=== PATIENT | female | born 1965 | race Caucasian/White ===

== ENCOUNTER → 2016-10-29 | Outpatient (CLI) | payer OTHER ==
[2016-10-29 13:11] LABS: FREE T4 0.82 NG/DL (0.76-1.46)
[2016-10-29 13:13] LABS: MEAN CORPUSCULAR HEMOGLOBIN 28.2 pg (27.0-33.0); MEAN CORPUSCULAR VOLUME 88.1 fl (80.0-96.0); RED CELL DISTRIBUTION WIDTH 14.6 % (11.5-14.5)
[2016-11-01 10:13] LABS: WHITE BLOOD COUNT 3.5 K/mm3 (4.0-10.0)
== END ==
LOC: M WUC 08:42
PROVIDERS: ATTEND Advanced Practice Midwife
DX: N92.0 Excessive and frequent menstruation with regular cycle (principal); R53.82 Chronic fatigue, unspecified; Z13.220 Encounter for screening for lipoid disorders

== ENCOUNTER → 2017-01-17 | Outpatient (CLI) | payer OTHER ==
--- NOTE | 2017-01-18 04:59 | REP ---
Clinical: Dysmenorrhea. Comparison: 09/29/2015. Technique: Transabdominal pelvic ultrasound followed by transvaginal examination for better evaluation of the endometrium and adnexa with color Doppler evaluation of the ovaries. Findings: Bladder is unremarkable and measures 9.1 x 4.3 x 5.4 cm . Heterogeneous, anteverted, myomatous uterus measures 11.9 x 6.7 x 7.3 cm. The endometrial complex measures 11.3 mm thickness. Left anterior intramural fibroid measures 2.3 x 1.9 x 1.9 cm; left posterior intramural fibroid measures 1.9 x 1.2 x 1.4 cm; posterior midline intramural fibroid measures 2.9 x 2.9 x 2.4 cm. Bilateral ovaries are normal in appearance and vascularity without evidence for torsion. Right ovary measures 1.9 x 1.4 x 2.0 cm ; R I = 0.59 . Left ovary measures 2.2 x 1.0 x 2.1 cm ; R I = 0.58. No pelvic fluid or adnexal mass lesion . Impression: 1. Enlarged heterogeneous myomatous uterus. 2. Normal bilateral ovaries without torsion. Signed by Malcolm Chambers MD 01/18/2017 04:50 A
== END ==
LOC: M RAD 10:01
PROVIDERS: ATTEND Physician Assistant
DX: N94.6 Dysmenorrhea, unspecified (principal); N85.2 Hypertrophy of uterus; D25.9 Leiomyoma of uterus, unspecified

== ENCOUNTER 2017-03-24 06:44 | Outpatient (CLI) | payer OTHER ==
[~2017-03-24] VITALS: Ht 165.1 cm; Wt 56.2 kg
[~2017-03-24 06:44] MED LIST: MICR1TAB16 PO; TOPI50TA9 PO; VENL75CA47 PO
[2017-03-24] MEDS ORDERED: PROPOFOL 200 MG/20 ML VIAL As Ordered ONE (07:02)
[2017-03-24] MEDS ORDERED: LIDOCAINE 2% INJ 100 MG/5 ML SDV (FOR ANES.) As Ordered ONE (07:07)
[2017-03-24] MEDS ORDERED: NS 1,000 ML IV SCH (07:30)
--- NOTE | 2017-03-24 08:48 | RO ---
DATE OF PROCEDURE: 03/24/2017 PREOPERATIVE DIAGNOSIS: Screening colonoscopy. POSTOPERATIVE DIAGNOSIS: Screening colonoscopy. PROCEDURE: Colonoscopy. SURGEON: Herman Betts MD ANESTHESIA: Propofol. ESTIMATED BLOOD LOSS: None. FLUIDS: Crystalloid. DESCRIPTION OF PROCEDURE: The patient was brought to the endoscopy suite and was placed in the left lateral decubitus position. The patient was given intravenous sedation/propofol by anesthesia and the colonoscope was inserted into the anus, advanced to the ileocecal valve into the cecum. After changing the patient's position, as well as gentle abdominal pressure to guide it to the right colon, she had a very redundant. Eventually, the colonoscope was removed after visualizing the ileocecal valve and the appendiceal orifice, the cecum, right colon, transverse colon, descending colon, sigmoid colon and rectum appeared normal without any significant abnormalities. The patient did have some grade 2 internal hemorrhoids that prolapsed on removal of the scope, but these were not friable or actively bleeding. In addition, she had some very redundant sigmoid transverse colon, as well as ascending colon, but otherwise no significant abnormalities were appreciated. The recommendation is for followup colonoscopy for screening purposes in 10 years.
[2017-03-24 08:55] VITALS: BP 103/57
== END 2017-03-24 09:03 | disposition home or self-care (01) ==
LOC: M OPP 06:44
PROVIDERS: ATTEND Surgery
DX: Z12.11 Encounter for screening for malignant neoplasm of colon (principal); K64.1 Second degree hemorrhoids; Q43.8 Other specified congenital malformations of intestine; R56.9 Unspecified convulsions; F41.9 Anxiety disorder, unspecified; Z79.899 Other long term (current) drug therapy; Z80.42 Family history of malignant neoplasm of prostate

== ENCOUNTER → 2018-06-22 | Outpatient (CLI) | payer BC ==
[2018-06-22 12:47] LABS: BASO % 0.4 % (0.0-1.0); EOS # 0.2 10^3/uL (0.0-0.50); EOS % 4.4 % (0.0-3.0); HEMATOCRIT 32.5 % (36.0-47.0); HEMOGLOBIN 9.7 g/dl (12.0-15.5); IMMATURE GRANULOCYTE % 0.2 % (0-3.0); LYMPH # 1.2 10^3/uL (1.5-4.5); LYMPH % 26.9 % (24.0-44.0); MEAN CORPUSCULAR HEMOGLOBIN 24.3 pg (27.0-33.0); MEAN CORPUSCULAR HGB CONC 29.8 g/dl (32.0-36.5); MEAN CORPUSCULAR VOLUME 81.5 fl (80.0-96.0); MONO # 0.4 10^3/uL (0.0-0.8); NEUTROPHILS # 2.7 10^3/uL (1.8-7.7); NEUTROPHILS % 59.1 % (36.0-66.0); RED BLOOD COUNT 3.99 10^6/uL (4.00-5.40); RED CELL DISTRIBUTION WIDTH 15.9 % (11.5-14.5); WHITE BLOOD COUNT 4.5 10^3/uL (4.0-10.0)
[2018-06-22 13:12] LABS: POS COUNT POS FLAG
[2018-06-22 13:47] LABS: ALBUMIN 3.4 GM/DL (3.2-5.2); ALKALINE PHOSPHATASE 29 U/L (45-117); ALT/SGPT 13 U/L (12-78); ANION GAP 7 MEQ/L (8-16); AST/SGOT 10 U/L (7-37); BILIRUBIN,TOTAL 0.3 MG/DL (0.2-1.0); BLOOD UREA NITROGEN 12 MG/DL (7-18); CALCIUM LEVEL 8.7 MG/DL (8.5-10.1); CARBON DIOXIDE LEVEL 22 MEQ/L (21-32); CHLORIDE LEVEL 111 MEQ/L (98-107); CHOLESTEROL LEVEL 172 MG/DL (<200); CHOLESTEROL RISK RATIO 3.659 (<5); CREATININE FOR GFR 0.74 MG/DL (0.55-1.30); FREE T4 0.87 NG/DL (0.76-1.46); GLOMERULAR FILTRATION RATE > 60.0 (>51); GLUCOSE, FASTING 80 MG/DL (70-100); HDL CHOLESTEROL 47 MG/DL (>40); LDL CHOLESTEROL 94 MG/DL (<100); NON-HDL-C 125 MG/DL; POTASSIUM SERUM 4.8 MEQ/L (3.5-5.1); SODIUM LEVEL 140 MEQ/L (136-145); TOTAL PROTEIN 6.8 GM/DL (6.4-8.2); TRIGLYCERIDES LEVEL 154 MG/DL (<150)
[2018-06-22 15:19] LABS: RETIC HEMOGLOBIN EQUIVALENT 23.6 pg (24-36); RETICULOCYTE # 51.7 10^9/L (17-77); RETICULOCYTE % 1.3 % (0.5-1.5)
[2018-06-22 15:23] LABS: FERRITIN 2 NG/ML (8-252); IRON (FE) 28 UG/DL (50-170); PERCENT SATURATION 4.5 % (13.2-45.0); TOTAL IRON BINDING CAPACITY 616 UG/DL (250-450)
== END ==
LOC: M WUC 08:54
DX: D64.9 Anemia, unspecified (principal); Z13.0 Encounter for screening for diseases of the blood and blood-forming organs and certain disorders involving the immune mechanism; Z13.29 Encounter for screening for other suspected endocrine disorder; Z13.220 Encounter for screening for lipoid disorders
CPT/HCPCS: 83550

== ENCOUNTER → 2018-07-21 | Outpatient (REF) | payer BC | LOC: M LAB REF 17:09 | DX: N92.0 Excessive and frequent menstruation with regular cycle (principal) | CPT/HCPCS: 88305 ==

== ENCOUNTER → 2018-07-31 | Outpatient (CLI) | payer BC ==
--- NOTE | 2018-08-01 05:03 | REP ---
Clinical: Menometrorrhagia . Technique: Transabdominal pelvic ultrasound followed by transvaginal examination for better evaluation of the endometrium and adnexa with color Doppler evaluation of the ovaries. Findings: Bladder is unremarkable and measures 8.8 x 9.7 x 6.5 cm . Enlarged myomatous uterus measures 10.6 x 7.1 x 7.7 cm . The endometrial complex measures 5.7 mm thickness. Left anterior subserosal fibroid measures 3.0 x 2.3 x 2.9 cm; posterior intramural fibroid measures 2.1 x 1.9 x 1.5 cm; posterior/lower uterine segment intramural fibroid measures 1.3 x 1.3 x 1.3 cm; posterior left subserosal fibroid measures 1.6 x 1.5 x 1.3 cm; right lateral fibroid measures 1.4 x 1.6 x 1.8 cm. Right ovary not visualized. Left ovary appears normal and measures 2.0 x 1.0 x 1.5 cm. No pelvic fluid or adnexal mass lesion. Impression: 1. Enlarged myomatous uterus. 2. Normal left ovary; right ovary not visualized. Electronically Signed by Malcolm Chambers MD 08/01/2018 04:54 A
== END ==
LOC: M RAD 08:29
PROVIDERS: ATTEND Advanced Practice Midwife
DX: N85.2 Hypertrophy of uterus (principal); N92.0 Excessive and frequent menstruation with regular cycle

== ENCOUNTER → 2018-09-25 | Outpatient (CLI) | payer BC ==
[~2018-09-25] MED LIST changes: +FERR325T3 PO; +VITA500055 PO; +ZYRT10CA5 PO
[2018-09-25 13:14] LABS: BASO % 0.5 % (0.0-1.0); EOS # 0.4 10^3/uL (0.0-0.50); EOS % 8.5 % (0.0-3.0); HEMATOCRIT 43.4 % (36.0-47.0); LYMPH # 1.4 10^3/uL (1.5-4.5); LYMPH % 33.3 % (24.0-44.0); MEAN CORPUSCULAR HEMOGLOBIN 31.1 pg (27.0-33.0); MEAN CORPUSCULAR HGB CONC 32.3 g/dl (32.0-36.5); MEAN CORPUSCULAR VOLUME 96.4 fl (80.0-96.0); MONO # 0.4 10^3/uL (0.0-0.8); MONO % 8.3 % (0.0-5.0); NEUTROPHILS # 2.1 10^3/uL (1.8-7.7); NEUTROPHILS % 49.2 % (36.0-66.0); WHITE BLOOD COUNT 4.2 10^3/uL (4.0-10.0)
== END ==
LOC: M WUC 08:52
PROVIDERS: ATTEND Family Medicine
DX: D50.9 Iron deficiency anemia, unspecified (principal)

== ENCOUNTER → 2018-10-03 | Outpatient (CLI) | payer BC ==
[~2018-10-03] MED LIST changes: +PERCOCET PO
[2018-10-03 13:20] LABS: BLOOD UREA NITROGEN 13 MG/DL (7-18); CALCIUM LEVEL 8.8 MG/DL (8.5-10.1); CARBON DIOXIDE LEVEL 23 MEQ/L (21-32); CHLORIDE LEVEL 106 MEQ/L (98-107); CHOLESTEROL LEVEL 164 MG/DL (<200); CREATININE FOR GFR 0.83 MG/DL (0.55-1.30); GLOMERULAR FILTRATION RATE > 60.0 (>51); GLUCOSE, FASTING 74 MG/DL (70-100); HDL CHOLESTEROL 50 MG/DL (>40); LDL CHOLESTEROL 87 MG/DL (<100); NON-HDL-C 114 MG/DL; POTASSIUM SERUM 4.4 MEQ/L (3.5-5.1); SODIUM LEVEL 139 MEQ/L (136-145); TRIGLYCERIDES LEVEL 133 MG/DL (<150)
== END ==
LOC: M WUC 08:16
PROVIDERS: ATTEND Family Medicine
DX: Z13.220 Encounter for screening for lipoid disorders (principal)

== ENCOUNTER 2018-10-13 06:01 | Day surgery (SDC) | payer BC ==
[~2018-10-13] VITALS: Ht 165.1 cm; Wt 57.2 kg
[~2018-10-13 06:01] MED LIST changes: +LR 1,000 ML IV ONE
[2018-10-13 06:30] LABS: HEMATOCRIT 44.1 % (36.0-47.0); HEMOGLOBIN 14.4 g/dl (12.0-15.5); MEAN CORPUSCULAR HEMOGLOBIN 31.8 pg (27.0-33.0); MEAN CORPUSCULAR HGB CONC 32.7 g/dl (32.0-36.5); MEAN CORPUSCULAR VOLUME 97.4 fl (80.0-96.0); PLATELET COUNT, AUTOMATED 279 10^3/uL (150-450); RED BLOOD COUNT 4.53 10^6/uL (4.00-5.40); WHITE BLOOD COUNT 5.2 10^3/uL (4.0-10.0)
[2018-10-13] MEDS ORDERED: SCOPOLAMINE 1MG TRANSDERMAL PATCH As Ordered ONE (07:00)
[2018-10-13] MEDS ORDERED: LIDOCAINE 2% INJ 100 MG/5 ML SDV (FOR ANES.) As Ordered ONE ×3 (07:01→11:40)
[2018-10-13] MEDS ORDERED: ROCURONIUM BROMIDE 50 MG/5 ML VIAL As Ordered ONE ×2 (07:01→11:40)
[2018-10-13] MEDS ORDERED: PROPOFOL 200 MG/20 ML VIAL As Ordered ONE ×2 (07:01→08:27)
[2018-10-13] MEDS ORDERED: dexameTHASONE 4 MG/ML 1ML VIAL (J1100) As Ordered ONE ×2 (07:02→11:40)
[2018-10-13] MEDS ORDERED: ONDANSETRON 4MG/2ML VIAL (J2405) As Ordered ONE (07:02)
[2018-10-13] MEDS ORDERED: KETOROLAC 60 MG/2 ML VIAL (J1885) As Ordered ONE (07:02)
[2018-10-13] MEDS ORDERED: fentaNYL 100 MCG/2 ML INJECTION (J3010) As Ordered ONE (07:02)
[2018-10-13] MEDS ORDERED: HYDROmorphone HCL 2 MG/ML 1ML VIAL (J1170) As Ordered ONE (07:03)
[2018-10-13] MEDS ORDERED: MIDAZOLAM INJ 5 MG/ML VIAL (J2250) As Ordered ONE (07:03)
[2018-10-13] MEDS ORDERED: KETAMINE HCL 200 MG/20 ML VIAL As Ordered ONE (07:04)
[2018-10-13] MEDS ORDERED: SUGAMMADEX SODIUM 500 MG/5 ML VIAL (BRIDION) As Ordered ONE (07:08)
[2018-10-13] MEDS ORDERED: METHYLENE BLUE 0.5% (5MG/ML) 10 ML AMP (PROVAYBLUE)(Q9968 PER 1MG) As Ordered ONE (07:11)
[2018-10-13] MEDS ORDERED: BUPIVACAINE HCL 0.25% 10 ML VIAL As Ordered ONE (07:11)
[2018-10-13 07:13] LABS: URINE PREG TEST NEGATIVE (NEGATIVE)
[2018-10-13] MEDS ORDERED: SCOPOLAMINE 1MG TRANSDERMAL PATCH TOP ONE (07:15)
[2018-10-13] MEDS ORDERED: METHOCARBAMOL IV ONE (08:00)
[2018-10-13] MEDS ORDERED: NS IV ONE (08:00)
[2018-10-13] MEDS ORDERED: GLYCOPYRROLATE INJ 0.2 MG/ML 2 ML VIAL As Ordered ONE (08:23)
[2018-10-13] MEDS ORDERED: ePHEDrine SULFATE 25 MG/5 ML(5MG/ML) SYRINGE As Ordered ONE (08:23)
[2018-10-13] MEDS ORDERED: SILVER NITRATE APPLICATOR As Ordered ONE (09:28)
[2018-10-13] MEDS ORDERED: fentaNYL 100 MCG/2 ML INJECTION (J3010) IV PRN (10:15)
[2018-10-13] MEDS ORDERED: ONDANSETRON 4MG/2ML VIAL (J2405) IV PRN (10:15)
[2018-10-13] MEDS ORDERED: PERCOCET 5MG/325MG TAB PO PRN ×2 (10:15→10:30)
[2018-10-13] MEDS ORDERED: LR 1,000 ML IV SCH (10:15)
--- NOTE | 2018-10-13 10:37 | RO ---
DATE OF PROCEDURE: 10/13/2018 PREOPERATIVE DIAGNOSES: 1. Fibroid uterus. 2. Abnormal uterine bleeding. POSTOPERATIVE DIAGNOSES: 1. Fibroid uterus. 2. Abnormal uterine bleeding. PROCEDURES PERFORMED: 1. Robotic assisted laparoscopic hysterectomy. 2. Bilateral salpingectomy. 3. Cystoscopy. SURGEON: Patito Hernandez MD STEAM [employer]OVEL OPERATING ENGINEER: QASIM Miller ANESTHESIA: General endotracheal anesthesia. ESTIMATED BLOOD LOSS: 50 mL. INTRAVENOUS FLUIDS: 1500 mL of Lactated Ringer's solution. URINE OUTPUT: 100 mL. PREOPERATIVE ANTIBIOTICS: 2 grams of Ancef. OPERATIVE FINDINGS: Patient with markedly enlarged fibroid uterus. Normal appearing bilateral adnexa. Cystoscopic findings show normal bladder mucosa, bilateral jets were observed, no foreign objects were seen. DESCRIPTION OF OPERATION: After informed consent was obtained and written consent was reviewed, the patient was brought to the operating room where general endotracheal anesthesia was obtained. She was then placed in lithotomy position, was prepped and draped in a normal sterile fashion. A time out in the operating room was then performed, identifying the patient and procedure to be performed as well as drug allergies. A speculum was then placed revealing the cervix. The anterior and posterior aspect of the cervix was stitched with #0 Vicryl. A large VCare uterine manipulator was then advanced through the cervical os for a means to manipulate the uterus. A cervical cap as well as vaginal sleeve was applied down into the vagina. Speculum was removed. Ye catheter was placed and set to gravity. Gloves were changed and attention was turned to the patient's abdomen where a Veress needle was placed through the umbilicus and a pneumoperitoneum was obtained with CO2 gas. The supraumbilical area was infused with 0.25% Marcaine and an incision was made in this area. An 11 mm trocar and sleeve was advanced through this incision. The laparoscope was replaced revealing intra-abdominal placement. Three additional port sites were placed. Two to the left side of the patient's abdomen and one to the right. These areas were infused with 0.25% Marcaine and in each one of these areas an incision was made. 8 mm trocars and sleeves were advanced through each one of these incisions under direct visualization. Next, the da Mark was docked utilizing the camera arm and two operative arms. The patient's abdomen was then inspected with the above noted findings. Bilateral salpingectomies were then performed. The right fallopian tube was placed on traction. It was transected at the level of the uterus using a vessel sealer. The mesosalpinx was further dissected, cauterized and ligated with good hemostasis noted. The specimen was then brought out through the port site. In a similar fashion, the left fallopian tube was placed on traction, and using the vessel sealer the mesosalpinx was cauterized and ligated and the fallopian tube was transected at the level of the uterus. Surgical sites were inspected and noted to be hemostatic. The specimen was brought out through the port site. Next, the utero-ovarian ligaments bilaterally were cauterized and ligated with good hemostasis noted. The round ligaments were cauterized and ligated with good hemostasis noted. The anterior lip of the broad ligaments were then cauterized and ligated with good hemostasis noted. This was done bilaterally and dissected along the bladder creating a bladder flap. The remainder of the broad ligament and cardinal ligaments were then cauterized and ligated with good hemostasis noted. The uterine vessels were then skeletonized bilaterally and were cauterized and ligated with good hemostasis noted. Anterior and posterior colpotomies were then made using the monopolar scissors. The uterus was then removed through the vaginal incision. The vaginal cuff was then closed using the #2-0 V-Loc system in a running fashion. Surgical sites were irrigated and suctioned. Tin was applied over the surgical field. The pneumoperitoneum was then released. Next, a cystoscopy was performed utilizing a 70 degree cystoscope. This was advanced transurethrally through the bladder and the bladder was surveyed showing normal bladder mucosa, no foreign bodies. Bilateral jets of the ureters were observed. The cystoscope was then removed and the bladder was drained. Gloves were changed and attention was turned to the patient's abdomen where all four port sites were closed with #4-0 Monocryl and dressed with DERMABOND. The patient was then taken out of lithotomy position, was awakened from general anesthesia and taken to recovery in stable condition. Counts were correct. Yolanda Duncan, my surgical scheduler, played an essential role during the surgery. She assisted with port placement, tissue retraction and identification, and wound closure.
[2018-10-13 13:04] VITALS: BP 100/52
[2018-10-13] MEDS ORDERED: KETOROLAC 30 MG/ML VIAL (J1885) IV SCH (15:00)
== END 2018-10-13 13:15 | disposition home or self-care (01) ==
LOC: M SDC 06:01
PROVIDERS: ATTEND Obstetrics & Gynecology
DX: N80.0 Endometriosis of uterus (principal); D25.1 Intramural leiomyoma of uterus; D25.2 Subserosal leiomyoma of uterus; D64.9 Anemia, unspecified; F41.9 Anxiety disorder, unspecified; Z85.858 Personal history of malignant neoplasm of other endocrine glands; Z79.899 Other long term (current) drug therapy
CPT/HCPCS: 36415; 58573; 84703; 85027; 86850; 86900; 86901; 88307; J0690; J1100; J1170; J1885; J2250; J2405; J2800; J3010

== ENCOUNTER → 2019-10-18 | Outpatient (CLI) | payer BC ==
[~2019-10-18] MED LIST changes: -LR 1,000 ML IV ONE
[2019-10-18 13:15] LABS: BASO % 0.5 % (0.0-1.0); EOS # 0.2 10^3/uL (0.0-0.5); EOS % 4.5 % (0.0-3.0); HEMATOCRIT 42.7 % (36.0-47.0); HEMOGLOBIN 13.9 g/dl (12.0-15.5); LYMPH # 1.4 10^3/uL (1.5-5.0); LYMPH % 34.6 % (24.0-44.0); MEAN CORPUSCULAR HEMOGLOBIN 31.6 pg (27.0-33.0); MEAN CORPUSCULAR HGB CONC 32.6 g/dl (32.0-36.5); MONO # 0.4 10^3/uL (0.0-0.8); MONO % 9.8 % (0.0-5.0); NEUTROPHILS % 50.3 % (36.0-66.0)
[2019-10-18 13:48] LABS: ALBUMIN 4.2 GM/DL (3.2-5.2); ALT/SGPT 28 U/L (12-78); BILIRUBIN,TOTAL 0.4 MG/DL (0.2-1.0); BLOOD UREA NITROGEN 17 MG/DL (7-18); CALCIUM LEVEL 9.4 MG/DL (8.5-10.1); CARBON DIOXIDE LEVEL 32 MEQ/L (21-32); CHLORIDE LEVEL 105 MEQ/L (98-107); CHOLESTEROL LEVEL 195 MG/DL (<200); CHOLESTEROL RISK RATIO 2.708 (<5); FREE T4 0.86 NG/DL (0.76-1.46); GLOMERULAR FILTRATION RATE > 60.0 (>51); GLUCOSE, FASTING 87 MG/DL (70-100); HDL CHOLESTEROL 72 MG/DL (>40); LDL CHOLESTEROL 109 MG/DL (<100); NON-HDL-C 123 MG/DL; POTASSIUM SERUM 4.3 MEQ/L (3.5-5.1); SODIUM LEVEL 141 MEQ/L (136-145); TOTAL PROTEIN 7.1 GM/DL (6.4-8.2); TRIGLYCERIDES LEVEL 70 MG/DL (<150)
== END ==
LOC: M WUC 09:00
PROVIDERS: ATTEND Family Medicine
DX: Z13.220 Encounter for screening for lipoid disorders (principal); Z13.29 Encounter for screening for other suspected endocrine disorder; Z13.0 Encounter for screening for diseases of the blood and blood-forming organs and certain disorders involving the immune mechanism

== ENCOUNTER → 2020-02-04 | Outpatient (CLI) | payer BC ==
--- NOTE | 2020-02-05 09:44 | REPMRS ---
Patient History The patient states she has not had a clinical breast exam in over a year. Family history of prostate cancer at age 50 or over in father. Reductions of both breasts, January 19, 1984. Digital Woman Screen Mammo: February 04, 2020 - Exam #: [id number] Bilateral CC and MLO view(s) were taken. Technologist: Ly Zhu, Technologist Prior study comparison: May 08, 2018, bilateral digital woman screen mammo, performed at [facility]. September 29, 2015, digital woman screen mammo performed at [facility]. September 11, 2012, digital bilateral screening mammo, performed at [facility]. FINDINGS: The breast tissue is heterogeneously dense. This may lower the sensitivity of mammography. The Volpara volumetric breast density category is: C. There is a moderate amount of heterogeneously dense fibroglandular tissue which is fairly symmetric. There is no interval development of dominant mass, architectural distortion, or grouped microcalcification typical of malignancy. There has been no change in the appearance of the mammogram from the prior studies. 3-D tomosynthesis shows no additional findings. Assessment: BI-RADS/ACR category 1 mammogram. Negative Mammogram. Recommendation Routine screening mammogram of both breasts in 1 year (for women over age 40). This patient's Lifetime Breast Cancer RIsk is estimated at 9.2 %. This mammogram was interpreted with the aid of an FDA-approved computer-aided dectection system. Electronically Signed By: Alf Montague MD 02/05/20 0912
== END ==
LOC: M WHC 12:21
PROVIDERS: ATTEND Family Medicine
DX: Z12.31 Encounter for screening mammogram for malignant neoplasm of breast (principal); Z80.42 Family history of malignant neoplasm of prostate

== ENCOUNTER → 2020-10-14 | Outpatient (CLI) | payer BC ==
[2020-10-14 12:11] LABS: BASO % 0.4 % (0.0-1.0); EOS # 0.2 10^3/uL (0.0-0.5); EOS % 4.7 % (0.0-3.0); HEMATOCRIT 43.7 % (36.0-47.0); HEMOGLOBIN 14.2 g/dl (12.0-15.5); LYMPH # 1.5 10^3/uL (1.5-5.0); LYMPH % 32.8 % (24.0-44.0); MEAN CORPUSCULAR HEMOGLOBIN 32.1 pg (27.0-33.0); MEAN CORPUSCULAR HGB CONC 32.5 g/dl (32.0-36.5); MEAN CORPUSCULAR VOLUME 98.9 fl (80.0-96.0); MONO # 0.4 10^3/uL (0.0-0.8); MONO % 7.7 % (2.0-8.0); NEUTROPHILS # 2.5 10^3/uL (1.5-8.5); NEUTROPHILS % 54.2 % (36.0-66.0); RED BLOOD COUNT 4.42 10^6/uL (4.00-5.40); WHITE BLOOD COUNT 4.7 10^3/uL (4.0-10.0)
[2020-10-14 12:38] LABS: ALBUMIN 4.1 GM/DL (3.2-5.2); ALT/SGPT 17 U/L (12-78); BILIRUBIN,TOTAL 0.4 MG/DL (0.2-1.0); BLOOD UREA NITROGEN 17 MG/DL (7-18); CALCIUM LEVEL 9.8 MG/DL (8.5-10.1); CARBON DIOXIDE LEVEL 33 MEQ/L (21-32); CHLORIDE LEVEL 105 MEQ/L (98-107); CHOLESTEROL LEVEL 211 MG/DL (<200); CHOLESTEROL RISK RATIO 3.149 (<5); CREATININE FOR GFR 0.69 MG/DL (0.55-1.30); FREE T4 0.77 NG/DL (0.76-1.46); GLOMERULAR FILTRATION RATE > 60.0 (>51); GLUCOSE, FASTING 75 MG/DL (70-100); HDL CHOLESTEROL 67 MG/DL (>40); LDL CHOLESTEROL 119 MG/DL (<100); NON-HDL-C 144 MG/DL; POTASSIUM SERUM 4.5 MEQ/L (3.5-5.1); SODIUM LEVEL 139 MEQ/L (136-145); TOTAL PROTEIN 7.5 GM/DL (6.4-8.2); TRIGLYCERIDES LEVEL 125 MG/DL (<150)
== END ==
LOC: M WUC 09:58
PROVIDERS: ATTEND Family Medicine
DX: Z13.29 Encounter for screening for other suspected endocrine disorder (principal); Z13.220 Encounter for screening for lipoid disorders; Z13.0 Encounter for screening for diseases of the blood and blood-forming organs and certain disorders involving the immune mechanism

== ENCOUNTER → 2021-02-23 | Outpatient (CLI) | payer BC ==
--- NOTE | 2021-02-23 13:15 | REPMRS ---
Patient History The patient states she has not had a clinical breast exam in over a year. Family history of prostate cancer at age 50 or over in father, prostate cancer at age 60 in brother. Reductions of both breasts, January 19, 1984. No Hormone Replacement Therapy Patient states no breast complaints today. Patient has signed MRS History Sheet. Digital Woman Screen Mammo: February 23, 2021 - Exam #: [id number] Bilateral CC and MLO view(s) were taken. Technologist: Doris Payne, Technologist Prior study comparison: February 04, 2020, bilateral digital woman screen mammo performed at [facility]. May 08, 2018, bilateral digital woman screen mammo, performed at [facility]. FINDINGS: The breast tissue is heterogeneously dense. This may lower the sensitivity of mammography. Screening. Digital screening (2D) mammography was performed bilaterally in the CC and MLO projections. Additionally, breast tomosynthesis (3D mammography) was performed bilaterally in the CC and MLO projections. Todays exam was compared to the prior exam/exams. By history, the patient has no complaints of a palpable breast abnormality or other significant breast complaints. The breasts are unchanged in size and shape.Once again, dense heterogenous fibroglandular elements are seen bilaterally in a stable appearing pattern but to such a degree that the sensitivity of the mammogram in detecting cancer is decreased. There are no mickie-soft tissue densities or spiculated masses. There is no internal architectural distortion. Once again, stable benign appearing calcifications are seen.There are no suspicious mickie-calcific clusters. Skin thickening or nipple retraction is not present. IMPRESSION: BI-RADS Category 2- Benign Findings. There is no evidence of malignant alteration of the breasts. Followup examination recommended in one year. The Volpara volumetric breast density category is C, the breasts are heterogenously dense which may obscure small masses. This mammogram was read with the assistance of wedgiesSalma CleveX,an FDA approved computer aided detection system for mammography. The lifetime Tyrer-Cuzick score is 9 % Due to the density of the breasts or Tyrer Cuzick score of 20% or greater, MRI/whole breast screening ultrasound is warranted. Negative x-ray reports should not delay surgical consultation if a dominant or clinically suspicious mass is present. Not all breast cancers can be identified by mammography. Therefore, we recommend that you continue to perform regular breast self-examination and physical examination and then promptly contact your physician of any concerns or changes. Adenosis and dense breasts may obscure an underlying neoplasm. Assessment: BI-RADS/ACR category 2 mammogram. Benign Findings. Recommendation Routine screening mammogram of both breasts in 1 year. Electronically Signed By: Rene Montes DO 02/23/21 [id number]
== END ==
LOC: M WHC 11:54
PROVIDERS: ATTEND Family Medicine
DX: Z12.31 Encounter for screening mammogram for malignant neoplasm of breast (principal); Z80.42 Family history of malignant neoplasm of prostate; Z98.890 Other specified postprocedural states

== ENCOUNTER → 2021-06-26 | Outpatient (CLI) | payer BC ==
[2021-06-26 11:37] LABS: BASO % 0.6 % (0.0-1.0); EOS # 0.2 10^3/uL (0.0-0.5); EOS % 4.5 % (0.0-3.0); HEMATOCRIT 41.2 % (36.0-47.0); HEMOGLOBIN 13.6 g/dl (12.0-15.5); LYMPH # 1.4 10^3/uL (1.5-5.0); LYMPH % 40.3 % (24.0-44.0); MEAN CORPUSCULAR HEMOGLOBIN 31.6 pg (27.0-33.0); MEAN CORPUSCULAR VOLUME 95.8 fl (80.0-96.0); MONO # 0.3 10^3/uL (0.0-0.8); MONO % 8.7 % (2.0-8.0); NEUTROPHILS # 1.6 10^3/uL (1.5-8.5); NEUTROPHILS % 45.6 % (36.0-66.0); WHITE BLOOD COUNT 3.6 10^3/uL (4.0-10.0)
[2021-06-26 12:25] LABS: ALBUMIN 3.9 GM/DL (3.2-5.2); ALT/SGPT 20 U/L (12-78); BILIRUBIN,TOTAL 0.4 MG/DL (0.2-1.0); BLOOD UREA NITROGEN 21 MG/DL (7-18); CALCIUM LEVEL 9.5 MG/DL (8.5-10.1); CARBON DIOXIDE LEVEL 28 MEQ/L (21-32); CHLORIDE LEVEL 106 MEQ/L (98-107); CHOLESTEROL LEVEL 198 MG/DL (<200); CHOLESTEROL RISK RATIO 2.955 (<5); CREATININE FOR GFR 0.68 MG/DL (0.55-1.30); FREE T4 0.84 NG/DL (0.76-1.46); GLOMERULAR FILTRATION RATE > 60.0 (>51); GLUCOSE, FASTING 83 MG/DL (70-100); HDL CHOLESTEROL 67 MG/DL (>40); IRON (FE) 144 UG/DL (50-170); LDL CHOLESTEROL 115 MG/DL (<100); NON-HDL-C 131 MG/DL; PERCENT SATURATION 38.5 % (13.2-45.0); POTASSIUM SERUM 4.1 MEQ/L (3.5-5.1); SODIUM LEVEL 140 MEQ/L (136-145); TOTAL IRON BINDING CAPACITY 374 UG/DL (250-450); TOTAL PROTEIN 7.2 GM/DL (6.4-8.2); TRIGLYCERIDES LEVEL 79 MG/DL (<150)
== END ==
LOC: M WUC 08:49
PROVIDERS: ATTEND Physician Assistant
DX: D50.9 Iron deficiency anemia, unspecified (principal); F41.1 Generalized anxiety disorder; Z13.220 Encounter for screening for lipoid disorders

== ENCOUNTER → 2021-07-01 | Outpatient (CLI) | payer BC ==
[2021-07-01 10:40] LABS: PLTBLUE- EDTA FREE CALC 197 K/mm3 (172-450); PLTBLUE- EDTA FREE MACHINE 179 10^3/uL (172-450)
[2021-07-01 10:41] LABS: BASO % 0.6 % (0.0-1.0); EOS # 0.2 10^3/uL (0.0-0.5); EOS % 3.2 % (0.0-3.0); HEMATOCRIT 45.4 % (36.0-47.0); HEMOGLOBIN 14.9 g/dl (12.0-15.5); LYMPH # 1.5 10^3/uL (1.5-5.0); LYMPH % 27.6 % (24.0-44.0); MEAN CORPUSCULAR HEMOGLOBIN 31.4 pg (27.0-33.0); MEAN CORPUSCULAR HGB CONC 32.8 g/dl (32.0-36.5); MEAN CORPUSCULAR VOLUME 95.8 fl (80.0-96.0); MONO # 0.5 10^3/uL (0.0-0.8); MONO % 8.8 % (2.0-8.0); NEUTROPHILS # 3.2 10^3/uL (1.5-8.5); NEUTROPHILS % 59.6 % (36.0-66.0); RED BLOOD COUNT 4.74 10^6/uL (4.00-5.40); WHITE BLOOD COUNT 5.4 10^3/uL (4.0-10.0)
== END ==
LOC: M WUC 09:22
PROVIDERS: ATTEND Physician Assistant
DX: R53.83 Other fatigue (principal)

== ENCOUNTER → 2022-04-12 | Outpatient (CLI) | payer BC | LOC: M WHC 11:18 | PROVIDERS: ATTEND Family Medicine | DX: Z12.31 Encounter for screening mammogram for malignant neoplasm of breast (principal) ==

== ENCOUNTER → 2022-12-13 | Outpatient (CLI) | payer BC ==
[~2022-12-13] MED LIST changes: -MICR1TAB16 PO; +NORE1TAB86 PO; +TOPI-254 PO; -TOPI50TA9 PO
[2022-12-13 13:07] LABS: BASO % 0.6 % (0.0-1.0); EOS # 0.4 10^3/uL (0.0-0.5); EOS % 8.3 % (0.0-3.0); HEMATOCRIT 43.6 % (36.0-47.0); LYMPH # 1.6 10^3/uL (1.5-5.0); LYMPH % 33.3 % (24.0-44.0); MEAN CORPUSCULAR HEMOGLOBIN 31.7 pg (27.0-33.0); MEAN CORPUSCULAR HGB CONC 32.1 g/dl (32.0-36.5); MEAN CORPUSCULAR VOLUME 98.9 fl (80.0-96.0); MONO # 0.4 10^3/uL (0.0-0.8); MONO % 7.7 % (2.0-8.0); NEUTROPHILS # 2.3 10^3/uL (1.5-8.5); NEUTROPHILS % 49.9 % (36.0-66.0); RED BLOOD COUNT 4.41 10^6/uL (4.00-5.40); WHITE BLOOD COUNT 4.7 10^3/uL (4.0-10.0)
[2022-12-13 13:12] LABS: ALBUMIN 4.1 G/DL (3.2-5.2); ALKALINE PHOSPHATASE 72 U/L (46-116); ALT/SGPT 21 U/L (7.0-40); AST/SGOT 15 U/L (<34); BILIRUBIN,TOTAL 0.5 MG/DL (0.3-1.2); BLOOD UREA NITROGEN 16 MG/DL (9-23); CALCIUM LEVEL 9.7 MG/DL (8.5-10.1); CARBON DIOXIDE LEVEL 30 MMOL/L (20-31); CHLORIDE LEVEL 105 MMOL/L (98-107); CHOLESTEROL LEVEL 201 MG/DL (<200); CREATININE FOR GFR 0.67 MG/DL (0.55-1.30); FERRITIN 28.8 NG/ML (7.3-270.7); FREE T4 0.83 NG/DL (0.89-1.76); GLOMERULAR FILTRATION RATE > 60.0 (>51); GLUCOSE, FASTING 84 MG/DL (60-100); IRON (FE) 98 UG/DL (50-170); LDL CHOLESTEROL 117.4 MG/DL (<100); PERCENT SATURATION 25.8 % (13.2-45.0); POTASSIUM SERUM 4.4 MMOL/L (3.5-5.1); SODIUM LEVEL 139 MMOL/L (136-145); THYROID STIMULATING HORMONE 1.751 uIU/ML (0.55-4.78); TOTAL IRON BINDING CAPACITY 380 UG/DL (250-425); TOTAL PROTEIN 7.3 G/DL (5.7-8.2); TRIGLYCERIDES LEVEL 83 MG/DL (<150)
== END ==
LOC: M WUC 08:57
PROVIDERS: ATTEND Family Medicine
DX: D50.9 Iron deficiency anemia, unspecified (principal); Z13.220 Encounter for screening for lipoid disorders; Z13.0 Encounter for screening for diseases of the blood and blood-forming organs and certain disorders involving the immune mechanism; Z13.29 Encounter for screening for other suspected endocrine disorder

== ENCOUNTER → 2023-04-25 | Outpatient (CLI) | payer BC | LOC: M WHC 10:36 | PROVIDERS: ATTEND Family Medicine | DX: Z12.31 Encounter for screening mammogram for malignant neoplasm of breast (principal) ==

== ENCOUNTER → 2023-07-12 | Outpatient (CLI) | payer BC ==
[2023-07-12 16:31] LABS: HEMATOCRIT 42.4 % (36.0-47.0); HEMOGLOBIN 13.9 g/dl (12.0-15.5); MEAN CORPUSCULAR HEMOGLOBIN 31.8 pg (27.0-33.0); MEAN CORPUSCULAR HGB CONC 32.8 g/dl (32.0-36.5); RED BLOOD COUNT 4.37 10^6/uL (4.00-5.40); WHITE BLOOD COUNT 5.8 10^3/uL (4.0-10.0)
[2023-07-12 16:53] LABS: ALBUMIN 4.1 G/DL (3.2-5.2); ALKALINE PHOSPHATASE 63 U/L (46-116); ALT/SGPT 20 U/L (7.0-40); AST/SGOT 13 U/L (<34); BILIRUBIN,TOTAL 0.4 MG/DL (0.3-1.2); BLOOD UREA NITROGEN 21 MG/DL (9-23); CALCIUM LEVEL 9.7 MG/DL (8.5-10.1); CARBON DIOXIDE LEVEL 28 MMOL/L (20-31); CHLORIDE LEVEL 107 MMOL/L (98-107); CREATININE FOR GFR 0.71 MG/DL (0.55-1.30); GLOMERULAR FILTRATION RATE > 60.0 (>51); GLUCOSE, FASTING 85 MG/DL (60-100); POTASSIUM SERUM 4.2 MMOL/L (3.5-5.1); SODIUM LEVEL 144 MMOL/L (136-145); TOTAL PROTEIN 7.1 G/DL (5.7-8.2)
[2023-07-12 16:54] LABS: THYROID STIMULATING HORMONE 1.581 uIU/ML (0.55-4.78)
[2023-07-12 17:03] LABS: HEMOGLOBIN A1c 5.3 % (4.0-6.0)
== END ==
LOC: M PLALAB 14:17
PROVIDERS: ATTEND Advanced Practice Midwife
DX: R63.4 Abnormal weight loss (principal); Z13.9 Encounter for screening, unspecified

== ENCOUNTER → 2023-09-24 | Outpatient (REF) | payer BC ==
[~2023-09-24] MED LIST changes: +TOPI-21 PO; -TOPI-254 PO
== END ==
LOC: M WUC 19:23
PROVIDERS: ATTEND Physician Assistant
DX: J06.9 Acute upper respiratory infection, unspecified (principal)

== ENCOUNTER → 2024-12-10 | Outpatient (CLI) | payer BC ==
[~2024-12-10] MED LIST changes: +ISOVUE-370 76% 100ML VIAL ONE; +NORE-30 PO; -NORE1TAB86 PO
== END ==
LOC: M PLAIMG 09:17
PROVIDERS: ATTEND Family Medicine
DX: R10.31 Right lower quadrant pain (principal)